=== PATIENT | male | born 1985 | race Caucasian/White ===

== ENCOUNTER 2021-02-25 14:06 | Inpatient (IN) ==
[~2021-02-25 14:06] MED LIST: *HR* FentaNYL (PF) 100 MCG/2 ML VIAL ONE; *HR* Midazolam HCl 2 MG/2 ML VIAL ONE; *HR* Propofol 200 MG/20 ML VIAL IVP ONE; Lidocaine -MPF 2% 5 ML VIAL ONE; Ondansetron 4 MG/2 ML VIAL ONE
[2021-02-25] MEDS ORDERED: CeFAZolin Syr 3,000MG/30 ML 3,000 MG/30 ML SYRINGE IVPB ONE (14:23)
[2021-02-25] MEDS ORDERED: Ondansetron 4 MG/2 ML VIAL IVP PRN ×2 (14:42→22:43)
[2021-02-25] MEDS ORDERED: Famotidine 20 MG TABLET PO ONE (14:42)
[2021-02-25] MEDS ORDERED: *HR* HYDROmorphone PF 0.5 MG/0.5 ML SYRINGE IVP PRN (14:42)
[2021-02-25] MEDS: Ringers Solution, Lactated 1,000 ML IVC SCH (14:46)
[2021-02-25] MEDS ORDERED: Bupivacaine-MPF 0.25% 10 ML VIAL ONE (15:11)
[2021-02-25] MEDS ORDERED: *HR* FentaNYL (PF) 100 MCG/2 ML VIAL ONE (16:45)
[2021-02-25] MEDS ORDERED: *HR* HYDROMORPHONE 2 MG/ML VIAL ONE (16:48)
[2021-02-25] MEDS ORDERED: Acetaminophen IV 1,000 MG/100 ML BAG IVPB ONE (17:02)
[2021-02-25] MEDS ORDERED: Lidocaine/EPI 1:100k 2% 20 ML VIAL ONE (17:20)
[2021-02-25] MEDS ORDERED: Ketorolac 30 MG/ML VIAL IVP ONE (19:29)
[2021-02-25] MEDS ORDERED: *HR* OxyCODONE Immed Rel 5 MG TABLET PO STA (19:30)
[2021-02-25] MEDS: *HR* FentaNYL (PF) 100 MCG/2 ML VIAL IVP PRN ×2 (20:23→20:28)
[2021-02-25] MEDS: *HR* HYDROmorphone (PF) 1 MG/ML SYRINGE IVP SCH ×2 (22:21→22:37)
[2021-02-25] MEDS ORDERED: Naloxone 0.4 MG/ML INJ IVP PRN (22:43)
[2021-02-25] MEDS ORDERED: *HR* HYDROmorphone 20 MG/20 ML PCA IVC PRN (22:55)
[2021-02-25] MEDS ORDERED: *HR* HYDROmorphone (PF) 1 MG/ML SYRINGE IVP ONE (23:07)
[2021-02-25] MEDS ORDERED: *HR* FentaNYL (PF) 100 MCG/2 ML VIAL IVP ONE (23:26)
[2021-02-26] MEDS ORDERED: 0.9 % Sodium Chloride 1,000 ML ONE (00:01)
[2021-02-26] MEDS: *HR* HYDROmorphone (PF) 1 MG/ML SYRINGE IVP PRN ×2 (00:07→00:26)
[2021-02-26] MEDS ORDERED: Lidocaine Jelly 11 ml Syringe MM ONE (01:00)
[2021-02-26] MEDS: Ringers Solution, Lactated 1,000 ML IVC SCH ×3 (07:21→17:06)
[2021-02-26] MEDS: *HR* HYDROmorphone 20 MG/20 ML PCA IVC PRN ×2 (10:13→17:11)
[2021-02-27] MEDS: *HR* HYDROmorphone 20 MG/20 ML PCA IVC PRN ×3 (02:29→18:06)
[2021-02-27] MEDS ORDERED: Ibuprofen 800 MG TABLET PO PRN (10:36)
[2021-02-27] MEDS ORDERED: 0.9 % Sodium Chloride 1,000 ML IVC SCH (15:00)
[2021-02-27] MEDS ORDERED: *HR* HYDROmorphone (PF) 1 MG/ML SYRINGE IVP PRN (16:18)
[2021-02-27 17:00] LABS: Basophils # 0.1 K/mcL (0.0-0.2); Basophils % 0.7 %; Hematocrit 40.2 % (37.5-50.1); Immature Granulocytes % 0.6 % (0-4); Lymphocytes # 2.6 K/mcL (0.6-4.6); Lymphocytes % 25.3 %; Mean Corpuscular HGB Conc 33.6 g/dL (31.6-35.5); Mean Corpuscular Hemoglobin 28.6 pg (28.0-33.3); Mean Corpuscular Volume 85.2 fL (83.0-100.0); Neutrophils # 6.4 K/mcL (1.6-8.9); Platelet Count 220 K/mcL (140-400); Red Blood Count 4.72 M/mcL (4.19-5.50); Red Cell Distribution Width 12.2 % (11.5-14.5); Segmented Neutrophils % 63.4 %; White Blood Count 10.1 K/mcL (4.3-11.1)
[2021-02-27 17:01] LABS: Hemoglobin 13.5 g/dL (12.9-16.9)
[2021-02-27 17:29] LABS: BUN/Creatinine Ratio 14 (6-26); Blood Urea Nitrogen 13 mg/dL (6-20); Calcium 8.8 mg/dL (8.6-10.3); Carbon Dioxide 26 mEq/L (23-29); Chloride 102 mEq/L (98-107); Glucose 81 mg/dL (70-105); Osmolality,Calculated 281 (280-300); Potassium 3.7 mEq/L (3.5-5.1); Sodium 136 mEq/L (136-145); eGFR For African Americans > 60 (> 60); eGFR For Non-African Americans > 60 (> 60)
[2021-02-27] MEDS: *HR* HYDROmorphone (PF) 1 MG/ML SYRINGE IVP PRN ×3 (17:49→21:05)
[2021-02-27] MEDS: hydrOXYzine pamoate 25 MG CAPSULE PO SCH ×2 (17:53→20:48)
[2021-02-27] MEDS: ceFAZolin 2,000 MG in 0.9 % Sodium Chloride 100 ML IVPB SCH (20:46)
[2021-02-28] MEDS: ceFAZolin 2,000 MG in 0.9 % Sodium Chloride 100 ML IVPB SCH ×3 (03:19→18:53)
[2021-02-28] MEDS: hydrOXYzine pamoate 25 MG CAPSULE PO SCH ×3 (08:51→20:05)
[2021-02-28] MEDS: *HR* HYDROmorphone 20 MG/20 ML PCA IVC PRN ×2 (09:25→16:03)
[2021-02-28] MEDS: *HR* HYDROmorphone (PF) 1 MG/ML SYRINGE IVP PRN ×7 (10:52→20:05)
[2021-02-28] MEDS: polyethylene glycoL 3350 17 GM POWD.PACK PO SCH (14:14)
[2021-02-28] MEDS: *HR* LORazepam 2 MG/ML VIAL IVP PRN ×2 (14:15→20:16)
[2021-03-01] MEDS: ceFAZolin 2,000 MG in 0.9 % Sodium Chloride 100 ML IVPB SCH ×3 (01:32→17:48)
[2021-03-01] MEDS: *HR* HYDROmorphone (PF) 1 MG/ML SYRINGE IVP PRN (01:37)
[2021-03-01] MEDS: *HR* HYDROmorphone 20 MG/20 ML PCA IVC PRN (04:41)
[2021-03-01] MEDS: *HR* LORazepam 2 MG/ML VIAL IVP PRN ×2 (06:07→20:31)
[2021-03-01] MEDS ORDERED: *HR* HYDROmorphone 20 MG/20 ML PCA IVC PRN (07:34)
[2021-03-01] MEDS: hydrOXYzine pamoate 25 MG CAPSULE PO SCH ×3 (09:38→20:32)
[2021-03-01] MEDS: Sennosides/Docusate Sodium TABLET PO SCH ×2 (09:38→20:32)
[2021-03-01] MEDS: polyethylene glycoL 3350 17 GM POWD.PACK PO SCH (09:38)
[2021-03-01] MEDS ORDERED: *HR* OxyCODONE Immed Rel 15 MG TABLET PO PRN (12:25)
[2021-03-01] MEDS: *HR* OxyCODONE Immed Rel 5 MG TABLET PO PRN ×2 (18:11→22:11)
[2021-03-01 23:01] LABS: Basophils % 0.5 %; Eosinophils # 0.2 K/mcL (0.0-0.6); Eosinophils % 3.1 %; Hematocrit 32.6 % (37.5-50.1); Immature Granulocytes % 0.4 % (0-4); Lymphocytes # 1.7 K/mcL (0.6-4.6); Mean Corpuscular HGB Conc 34.4 g/dL (31.6-35.5); Mean Corpuscular Hemoglobin 28.5 pg (28.0-33.3); Mean Platelet Volume 9.8 fL (9.4-12.4); Monocytes # 0.5 K/mcL (0.0-1.3); Monocytes % 7.2 %; Neutrophils # 4.9 K/mcL (1.6-8.9); Platelet Count 273 K/mcL (140-400); Red Blood Count 3.93 M/mcL (4.19-5.50); Red Cell Distribution Width 11.9 % (11.5-14.5); Segmented Neutrophils % 65.8 %; White Blood Count 7.4 K/mcL (4.3-11.1)
[2021-03-01 23:03] LABS: Hemoglobin 11.2 g/dL (12.9-16.9)
[2021-03-01 23:10] LABS: INR 1.1; Prothrombin Time 11.8 Seconds (9.4-12.1)
[2021-03-01 23:13] LABS: Activated Partial Thrombo Time 35.8 Seconds (26.0-36.0)
[2021-03-02] MEDS: ceFAZolin 2,000 MG in 0.9 % Sodium Chloride 100 ML IVPB SCH ×2 (01:36→08:57)
[2021-03-02] MEDS: *HR* OxyCODONE Immed Rel 5 MG TABLET PO PRN ×3 (04:19→13:23)
[2021-03-02] MEDS: Sennosides/Docusate Sodium TABLET PO SCH (08:57)
[2021-03-02] MEDS: hydrOXYzine pamoate 25 MG CAPSULE PO SCH ×2 (08:57→15:40)
[2021-03-02] MEDS: polyethylene glycoL 3350 17 GM POWD.PACK PO SCH (08:57)
[2021-03-02 10:03] VITALS: BP 147/86; PULSE 98; TEMP 98; O2SAT 98
== END 2021-03-02 17:31 | disposition home or self-care (01) | DRG 516 ==
LOC: 4WAOSI 14:06 → SDCAOSI 14:06
PROVIDERS: ADMIT Student in an Organized Health Care Education/Training Program; ATTEND Student in an Organized Health Care Education/Training Program